=== PATIENT | female | born 1955 | race Caucasian/White ===

== ENCOUNTER 2018-06-03 13:02 | Inpatient (IN) | payer MEDICARE, BC ==
[2018-06-03 14:05] LABS: HEMATOCRIT 41.6 % (36.0-47.0); MEAN CORPUSCULAR HEMOGLOBIN 31.9 pg (27.0-33.0); MEAN CORPUSCULAR HGB CONC 33.7 g/dl (32.0-36.5); MEAN CORPUSCULAR VOLUME 94.8 fl (80.0-96.0); PLATELET COUNT, AUTOMATED 258 10^3/uL (150-450); RED BLOOD COUNT 4.39 10^6/uL (4.00-5.40); RED CELL DISTRIBUTION WIDTH 11.8 % (11.5-14.5); WHITE BLOOD COUNT 6.5 10^3/uL (4.0-10.0)
[2018-06-03 14:20] LABS: AMPHETAMINES LEVEL URINE NEGATIVE (NEGATIVE); BARBITURATES URINE NEGATIVE (NEGATIVE); BENZODIAZEPINES URINE NEGATIVE (NEGATIVE); CANNABINOIDS URINE NEGATIVE (NEGATIVE); COCAINE METABOLITE URINE NEGATIVE (NEGATIVE); METHADONE URINE NEGATIVE (NEGATIVE); OPIATES URINE POSITIVE (NEGATIVE); PHENCYCLIDINE URINE NEGATIVE (NEGATIVE)
[2018-06-03 14:32] LABS: ALBUMIN 4.2 GM/DL (3.2-5.2); ALBUMIN/GLOBULIN RATIO 1.45 (1.00-1.93); ALKALINE PHOSPHATASE 59 U/L (45-117); ALT/SGPT 27 U/L (12-78); ANION GAP 8 MEQ/L (8-16); AST/SGOT 23 U/L (7-37); BILIRUBIN,DIRECT 0.4 MG/DL (0.0-0.2); BILIRUBIN,TOTAL 1.9 MG/DL (0.2-1.0); BLOOD UREA NITROGEN 13 MG/DL (7-18); CARBON DIOXIDE LEVEL 28 MEQ/L (21-32); CHLORIDE LEVEL 103 MEQ/L (98-107); CREATININE FOR GFR 0.64 MG/DL (0.55-1.30); ETHYL ALCOHOL (ETHANOL) < 0.003 % (0.000-0.010); GLOMERULAR FILTRATION RATE > 60.0 (>45); GLUCOSE, FASTING 91 MG/DL (70-100); SALICYLATE LEVEL < 1.7 MG/DL (5.0-30.0); SODIUM LEVEL 139 MEQ/L (136-145); TOTAL PROTEIN 7.1 GM/DL (6.4-8.2)
[2018-06-03 14:37] LABS: ACETAMINOPHEN LEVEL < 2.0 UG/ML (10.0-30.0)
[2018-06-03] MEDS ORDERED: ACETAMINOPHEN TAB 650MG DOSE (2X325MG) PO (15:30)
[2018-06-03] MEDS ORDERED: MOM 30ML SUSPENSION UDC PO (15:30)
[2018-06-03] MEDS ORDERED: MAALOX 30 ML SUSP *UDC PO (15:30)
[2018-06-03] MEDS: IBUPROFEN 800 MG TAB PO (17:45)
[2018-06-03] MEDS: oxyCODONE 5MG TAB PO ×2 (20:29→21:28)
[2018-06-03] MEDS ORDERED: NORCO, ANEXSIA 5/325MG TABLET (HYDROcodone/ACETAMINOPHEN) PO (20:30)
[2018-06-03] MEDS: LORazepam 1 MG TAB PO (20:48)
[2018-06-03] MEDS ORDERED: oxyCODONE 5MG TAB PO (21:15)
[2018-06-04] MEDS: traZODone 50 MG TAB PO ×2 (00:50→20:52)
[2018-06-04] MEDS: CYCLOBENZAPRINE 10 MG TAB PO ×2 (10:12→20:52)
[2018-06-04] MEDS: MIRALAX *UNIT DOSE* 17GM PACKET PO (10:12)
[2018-06-04] MEDS: oxyCODONE 5MG TAB PO ×2 (10:13→18:50)
[2018-06-04] MEDS: DOCUSATE SODIUM 100 MG CAP PO ×2 (10:24→20:53)
[2018-06-04] MEDS: FLUTICASONE PROP 0.05% NASAL SPRAY 16 GM (FLONASE) (10:49)
[2018-06-04] MEDS: LORazepam 1 MG TAB PO (13:06)
[2018-06-04] MEDS: FLUoxetine 20 MG CAP PO (15:58)
[2018-06-04] MEDS: IBUPROFEN 800 MG TAB PO (20:53)
[2018-06-05] MEDS: oxyCODONE 5MG TAB PO ×3 (06:35→21:11)
[2018-06-05] MEDS: FLUoxetine 20 MG CAP PO (08:53)
[2018-06-05] MEDS: hydrOXYzine 25 MG TAB PO ×2 (08:53→19:08)
[2018-06-05] MEDS: MIRALAX *UNIT DOSE* 17GM PACKET PO (08:53)
[2018-06-05] MEDS: FLUTICASONE PROP 0.05% NASAL SPRAY 16 GM (FLONASE) (08:53)
[2018-06-05] MEDS: DOCUSATE SODIUM 100 MG CAP PO ×2 (08:54→21:10)
[2018-06-05] MEDS: IBUPROFEN 800 MG TAB PO ×2 (11:52→21:12)
[2018-06-05] MEDS: CYCLOBENZAPRINE 10 MG TAB PO (21:10)
[2018-06-05] MEDS: traZODone 50 MG TAB PO (21:11)
[2018-06-06] MEDS: IBUPROFEN 800 MG TAB PO (05:50)
[2018-06-06] MEDS: oxyCODONE 5MG TAB PO ×3 (05:51→20:35)
[2018-06-06] MEDS: MIRALAX *UNIT DOSE* 17GM PACKET PO (08:26)
[2018-06-06] MEDS: DOCUSATE SODIUM 100 MG CAP PO ×2 (08:26→20:31)
[2018-06-06] MEDS: FLUoxetine 20 MG CAP PO (08:27)
[2018-06-06] MEDS: FLUTICASONE PROP 0.05% NASAL SPRAY 16 GM (FLONASE) (08:27)
[2018-06-06] MEDS: CYCLOBENZAPRINE 10 MG TAB PO (10:47)
[2018-06-06] MEDS: LORazepam 1 MG TAB PO (10:47)
[2018-06-06] MEDS: hydrOXYzine 25 MG TAB PO (20:32)
[2018-06-06] MEDS: traZODone 50 MG TAB PO (20:32)
[2018-06-07] MEDS: CYCLOBENZAPRINE 10 MG TAB PO (07:33)
[2018-06-07] MEDS: oxyCODONE 5MG TAB PO ×3 (07:34→20:52)
[2018-06-07] MEDS: LORazepam 1 MG TAB PO ×2 (09:13→23:36)
[2018-06-07] MEDS: FLUTICASONE PROP 0.05% NASAL SPRAY 16 GM (FLONASE) (09:13)
[2018-06-07] MEDS: FLUoxetine 20 MG CAP PO (09:13)
[2018-06-07] MEDS: DOCUSATE SODIUM 100 MG CAP PO ×2 (09:13→20:51)
[2018-06-07] MEDS: MIRALAX *UNIT DOSE* 17GM PACKET PO (09:14)
[2018-06-07] MEDS: IBUPROFEN 800 MG TAB PO (11:54)
[2018-06-07] MEDS: traZODone 50 MG TAB PO (20:51)
[2018-06-07] MEDS: NORTRIPTYLINE 25 MG CAP PO (20:51)
[2018-06-08] MEDS: oxyCODONE 5MG TAB PO ×2 (06:12→17:50)
[2018-06-08] MEDS: DOCUSATE SODIUM 100 MG CAP PO ×2 (09:08→20:57)
[2018-06-08] MEDS: FLUTICASONE PROP 0.05% NASAL SPRAY 16 GM (FLONASE) (09:08)
[2018-06-08] MEDS: MIRALAX *UNIT DOSE* 17GM PACKET PO (09:08)
[2018-06-08] MEDS: FLUoxetine 20 MG CAP PO (09:08)
[2018-06-08] MEDS: LORazepam 1 MG TAB PO (09:12)
[2018-06-08] MEDS: OLANZapine ORAL DISINTEGRATING TAB 5MG PO (17:49)
[2018-06-08] MEDS: CYCLOBENZAPRINE 10 MG TAB PO ×2 (17:49→22:24)
[2018-06-08] MEDS: NORTRIPTYLINE 25 MG CAP PO (20:57)
[2018-06-08] MEDS: hydrOXYzine 25 MG TAB PO (20:57)
[2018-06-08] MEDS: traZODone 50 MG TAB PO (20:57)
[2018-06-09] MEDS: FLUTICASONE PROP 0.05% NASAL SPRAY 16 GM (FLONASE) (09:32)
[2018-06-09] MEDS: MIRALAX *UNIT DOSE* 17GM PACKET PO (09:32)
[2018-06-09] MEDS: DOCUSATE SODIUM 100 MG CAP PO ×2 (09:33→23:13)
[2018-06-09] MEDS: oxyCODONE 5MG TAB PO ×2 (09:34→17:53)
[2018-06-09] MEDS: IBUPROFEN 800 MG TAB PO ×2 (14:25→23:14)
[2018-06-09] MEDS: hydrOXYzine 25 MG TAB PO (14:25)
[2018-06-09] MEDS: NORTRIPTYLINE 25 MG CAP PO (23:13)
[2018-06-09] MEDS: CYCLOBENZAPRINE 10 MG TAB PO (23:13)
[2018-06-09] MEDS: traZODone 50 MG TAB PO (23:13)
[2018-06-10] MEDS: oxyCODONE 5MG TAB PO ×2 (00:11→06:51)
[2018-06-10] MEDS ORDERED: **PENDING PPD ENTRY XX (09:00)
[2018-06-10] MEDS: MIRALAX *UNIT DOSE* 17GM PACKET PO (09:23)
[2018-06-10] MEDS: FLUTICASONE PROP 0.05% NASAL SPRAY 16 GM (FLONASE) (09:23)
[2018-06-10] MEDS: DOCUSATE SODIUM 100 MG CAP PO (09:23)
[2018-06-10] MEDS: hydrOXYzine 25 MG TAB PO (09:25)
[2018-06-10] MEDS ORDERED: TUBERCULIN PPD 5 UNITS/0.1 ML ID (10:45)
[2018-06-10] MEDS: OLANZapine ORAL DISINTEGRATING TAB 5MG PO (12:28)
[2018-06-10] MEDS: IBUPROFEN 800 MG TAB PO (12:31)
[2018-06-12] MEDS ORDERED: PPD DOCUMENTATION ENTRY MISC XX (10:00)
== END 2018-06-10 15:55 | disposition home or self-care (01) | DRG 885 ==
LOC: M PSY 06-09 09:33 → M ED 13:02 → M ED INP 15:21 → M PSY 23:58
DX: F33.2 Major depressive disorder, recurrent severe without psychotic features (principal); G90.50 Complex regional pain syndrome I, unspecified; F60.3 Borderline personality disorder; Z88.5 Allergy status to narcotic agent; Z88.8 Allergy status to other drugs, medicaments and biological substances; F41.9 Anxiety disorder, unspecified; J30.9 Allergic rhinitis, unspecified; R26.89 Other abnormalities of gait and mobility; Z79.899 Other long term (current) drug therapy